=== PATIENT | male | born 1980 | race African-American/Black ===

== ENCOUNTER 2017-02-17 19:32 | Emergency (ER) | payer BC ==
[~2017-02-17] VITALS: Ht 177.8 cm; Wt 74.8 kg
[2017-02-17 19:32] VITALS: BP 148/95
[~2017-02-17 19:32] MED LIST: CEPH-264 PO; HYDR-79 PO
--- NOTE | 2017-02-17 19:43 | ED.ADGEN ---
Past History Past Medical History: Other Past Surgical History: Other Alcohol Use: None Drug Use: None Adult General Chief Complaint Chief Complaint Left shoulder pain [facility] HPI Patient is a 37 year old -[place] male who presents with left- sided shoulder/back pain. He states he has chronic neck pain that he's seen a chiropractor for and he's had to have muscle relaxants for the past. He states that's flaring back up with the pain that's in the medial aspect of his left shoulder blade. He states it's worse when he tries to move. He states his nephew and other can feel a lump and is concerned that he might have a cyst. He denies any shortness of breath it's worse than his normal shortness of breath that him being out of shape and being a smoker. He's tried aspirin for his discomfort. He states it hurts worse when he lays on his shoulder. He denies any fevers chills nausea or vomiting. He has tried aspirin and states it helps temporarily. He denies any shortness of breath, chest pain. Review of Systems Review of Systems Constitutional: Denies fever or chills [] Eyes: Denies change in visual acuity, redness, or eye pain [] HENT: Denies nasal congestion or sore throat [] Respiratory: Denies cough or shortness of breath [] Cardiovascular: No additional information not addressed in HPI [] GI: Denies abdominal pain, nausea, vomiting, bloody stools or diarrhea [] : Denies dysuria or hematuria [] Musculoskeletal: Denies back pain, positive for left shoulder and neck pain Integument: Denies rash or skin lesions [] Neurologic: Denies headache, focal weakness or sensory changes [] Endocrine: Denies polyuria or polydipsia [] Allergies Allergies Allergies Coded Allergies Type Severity Reaction Last Updated Verified latex Allergy Unknown 07/28/16 Yes morphine Allergy Unknown 07/28/16 Yes tramadol Allergy Unknown 07/28/16 Yes Physical Exam Physical Exam Constitutional: Well developed, well nourished, no acute distress, non-toxic appearance. [] HENT: Normocephalic, atraumatic, bilateral external ears normal, oropharynx moist, no oral exudates, nose normal. [] Eyes: PERRLA, EOMI, conjunctiva normal, no discharge. [] Neck: Normal range of motion, no tenderness, supple, no stridor. [] Cardiovascular:Heart rate regular rhythm, no murmur [] Lungs & Thorax: Bilateral breath sounds clear to auscultation [] Abdomen: Bowel sounds normal, soft, no tenderness, no masses, no pulsatile masses. [] Skin: Warm, dry, no erythema, no rash. [] Back: No midline tenderness, mild tender palpation with a tender point near the medial aspect of the left clavicle that's consistent with some muscle spasm, no CVA tenderness. [] Extremities: No tenderness, no cyanosis, no clubbing, ROM intact, no edema. [] Neurologic: Alert and oriented X 3, normal motor function, normal sensory function, no focal deficits noted. [] Psychologic: Affect normal, judgement normal, mood normal. [] Current Patient Data Vital Signs Vital Signs Date Time Temp Pulse Resp B/P (MAP) Pulse Ox O2 Delivery O2 Flow Rate FiO2 02/17/17 19:32 97.7 98 16 100 Room Air EKG EKG [] Radiology/Procedures Radiology/Procedures 2 View chest x-ray did not show any focal consolidations, pneumothorax, bony abnormalities, as interpreted by me. Course & Med Decision Making Course & Med Decision Making Pertinent Labs and Imaging studies reviewed. (See chart for details) Two-view chest x-ray did not show any acute abnormalities. His vitals are non- concerning. Since he does have any chest pain and this seems very muscle skeletal based on worse with movement he feels an obvious knot. We'll try Flexeril M follow-up with primary care physician. Return precautions given he is agreeable to the plan and being discharged in stable condition at this time. Final Impression Final Impression Muscle Spasm Problems: Dragon Disclaimer Dragon Disclaimer This electronic medical record was generated, in whole or in part, using a voice recognition dictation system. LUCI ALDANA MD February 17, 2017 19:43
[2017-02-17] MEDS ORDERED: CYCL-331 PO (20:11)
--- NOTE | 2017-02-18 09:08 | RAD ---
Chest, 2 views, 02/17/2017: History: Left-sided pain, cough and congestion The heart size and pulmonary vascularity are normal. There is a calcified granuloma in the right base. No acute infiltrates are seen. There is no evidence of pleural fluid. IMPRESSION: No acute cardiopulmonary abnormality is detected.
== END 2017-02-17 20:16 | disposition home or self-care (01) ==
LOC: ER 19:32
DX: M62.838 Other muscle spasm (principal); G89.29 Other chronic pain; Z88.5 Allergy status to narcotic agent; Z91.040 Latex allergy status
CPT/HCPCS: 71020; 99284-25